=== PATIENT | male | born 1980 ===

== ENCOUNTER 2023-03-20 18:18 | Emergency (ER) | payer OTHER, SELFPAY ==
[2023-03-20] MEDS ORDERED: Boostrix 0.5 ML (Tdap) VIAL (>/=7 yrs of age) ONE (18:26)
[2023-03-20] MEDS ORDERED: CEFAZOLIN 2 GM VIAL ONE (18:26)
[2023-03-20] MEDS ORDERED: Bacitracin 1 PK ONE (18:46)
== END 2023-03-20 18:59 ==
LOC: ERS 18:18
DX: S98.121A Partial traumatic amputation of right great toe, initial encounter (principal); V89.2XXA Person injured in unspecified motor-vehicle accident, traffic, initial encounter
CPT/HCPCS: 12001; 90471; 90715; 96365